=== PATIENT | male | born 1945 | race Caucasian/White ===

== ENCOUNTER 2017-08-12 00:11 | Day surgery (SDC) | payer MEDICARE ==
[~2017-08-12 00:11] MED LIST: ACEDIPPM; ACTOS; ALBU90I INH; AMLO10 PO; ASPI81CH PO; ASPI81EC PO; ATOR20 PO; DUTA.5 PO; ESOM20 PO; FENO145 PO; FENO160; FENO160 PO; FINA5 PO; FLUSAL1005 IH; FURO20 PO; GLIM4 PO; GLIMEPIRIDE; GLUC500 PO; GLUCHON; GLUCHON PO; IBUP100S; IBUP400 PO; INSULANI SC; INSULANPEN SQ; LEVSOD75 PO; METF500; METF500 PO; MONT10T PO; Metformin HCl1000 MG PO; OMEP20ER PO; OXYACE5T PO; POTA10T PO; PREG50 PO; ROSU10TA PO; TELM40/12. PO; TELM80/12.5 PO; TERA5 PO; ZOLP10 PO
== END 2017-08-12 15:42 | disposition home or self-care (01) ==
LOC: WOUND 00:11
PROC: 2W1QX6Z Compression of Right Lower Leg using Pressure Dressing (ICD-10-PCS; principal; 2017-08-12)
DX: E11.622 Type 2 diabetes mellitus with other skin ulcer (principal); L97.811 Non-pressure chronic ulcer of other part of right lower leg limited to breakdown of skin; S81.801A Unspecified open wound, right lower leg, initial encounter; I87.2 Venous insufficiency (chronic) (peripheral); I89.0 Lymphedema, not elsewhere classified; E11.621 Type 2 diabetes mellitus with foot ulcer; R60.0 Localized edema; E66.01 Morbid (severe) obesity due to excess calories
CPT/HCPCS: G0463

== ENCOUNTER 2017-08-16 11:30 | Day surgery (SDC) | payer MEDICARE ==
[2017-08-16] MEDS ORDERED: GABA300 PO (19:43)
[2017-08-16] MEDS ORDERED: LISI20 PO (19:43)
[2017-08-16] MEDS ORDERED: Silvadene20 GM TOP (19:44)
[2017-08-16] MEDS ORDERED: Micardis Hct 81 EAC1 PO (19:45)
[2017-08-16] MEDS ORDERED: ASCO500 PO (19:46)
[2017-08-16] MEDS ORDERED: Ferrous Sulfat325 M2 PO (19:46)
[2017-08-16] MEDS ORDERED: VITAMIN D31000 UNIT PO (19:46)
[2017-08-16] MEDS ORDERED: TUMS200 MG PO (19:47)
[2017-08-16] MEDS ORDERED: Glucosamine Ch1 EAC4 PO (19:48)
== END 2017-08-16 22:35 | disposition home or self-care (01) ==
LOC: WOUND 11:30
PROC: 2W1QX6Z Compression of Right Lower Leg using Pressure Dressing (ICD-10-PCS; principal; 2017-08-16)
DX: E11.622 Type 2 diabetes mellitus with other skin ulcer (principal); S81.801A Unspecified open wound, right lower leg, initial encounter; I87.2 Venous insufficiency (chronic) (peripheral); I89.0 Lymphedema, not elsewhere classified; E11.621 Type 2 diabetes mellitus with foot ulcer; R60.0 Localized edema

== ENCOUNTER 2017-08-19 10:37 | Day surgery (SDC) | payer MEDICARE ==
[~2017-08-19 10:37] MED LIST changes: +ASCO500 PO; +Ferrous Sulfat325 M2 PO; +GABA300 PO; +Glucosamine Ch1 EAC4 PO; +LISI20 PO; +Micardis Hct 81 EAC1 PO; +Silvadene20 GM TOP; +TUMS200 MG PO; +VITAMIN D31000 UNIT PO
== END 2017-08-19 23:04 | disposition home or self-care (01) ==
LOC: WOUND 10:37
DX: Z48.00 Encounter for change or removal of nonsurgical wound dressing (principal); E11.621 Type 2 diabetes mellitus with foot ulcer; S81.801A Unspecified open wound, right lower leg, initial encounter; I87.2 Venous insufficiency (chronic) (peripheral); I89.0 Lymphedema, not elsewhere classified; R60.0 Localized edema
CPT/HCPCS: G0463

== ENCOUNTER → 2017-12-01 | Outpatient (CLI) | payer MEDICARE ==
[2017-12-01 10:13] LABS: Source, Urine Clean Catch
[2017-12-01 13:08] LABS: Bilirubin, Urine Neg (Neg); Blood, Urine 1+ (Neg); Glucose Qualitative, Urine 4+ (Neg); Ketones, Urine Neg (Neg); Leukocyte Esterase, Urine Neg (Neg); Nitrite, Urine Neg (Neg); Protein, Urine 2+ (Neg); Urobilinogen, Urine NORM (Normal)
[2017-12-01 13:23] LABS: Appearance, Urine Clear (Clear); Color, Urine Yellow (P-Yellow)
[2017-12-01 13:24] LABS: Bacteria Rare /hpf; Hyaline Casts 0-2 /lpf (0-2); Mucus Light (0-Heavy); Red Blood Cells, Urine 0-2 /hpf (0-2); Squamous Epithelial Cells Rare /hpf (Few); White Blood Cells, Urine 0-2 /hpf (0-5)
== END | disposition home or self-care (01) ==
LOC: LAB 10:06 → LAB SHORT 10:06
PROVIDERS: Internal Medicine
DX: N18.2 Chronic kidney disease, stage 2 (mild) (principal)
CPT/HCPCS: 81001

== ENCOUNTER 2019-01-26 13:31 | Day surgery (SDC) | payer MEDICARE ==
[~2019-01-26] VITALS: Ht 182.9 cm; Wt 175.7 kg
== END 2019-01-26 15:00 | disposition home or self-care (01) ==
LOC: ORSCSDS 13:31
PROVIDERS: Anesthesiology
PROC: 3E0R33Z Introduction of Anti-inflammatory into Spinal Canal, Percutaneous Approach (ICD-10-PCS; principal; 2019-01-26 14:30)
DX: M51.16 Intervertebral disc disorders with radiculopathy, lumbar region (principal); E11.9 Type 2 diabetes mellitus without complications; E78.00 Pure hypercholesterolemia, unspecified; I10 Essential (primary) hypertension; J45.909 Unspecified asthma, uncomplicated; G89.29 Other chronic pain; G47.33 Obstructive sleep apnea (adult) (pediatric); E03.9 Hypothyroidism, unspecified; E66.01 Morbid (severe) obesity due to excess calories; Z68.43 Body mass index [BMI] 50.0-59.9, adult; Z79.82 Long term (current) use of aspirin; Z79.4 Long term (current) use of insulin; Z79.899 Other long term (current) drug therapy
CPT/HCPCS: J1040

== ENCOUNTER → 2020-01-25 | Outpatient (CLI) | payer MEDICARE | END | disposition home or self-care (01) | LOC: LAB 12:46 → LAB SHORT 12:46 | DX: I10 Essential (primary) hypertension (principal); D64.9 Anemia, unspecified | CPT/HCPCS: 82570; 84156 ==

== ENCOUNTER 2021-05-23 23:56 | Emergency (ER) | payer MEDICARE ==
[~2021-05-23] VITALS: Ht 182.9 cm; Wt 176.9 kg
== END 2021-05-24 03:23 | disposition home or self-care (01) ==
LOC: ER 23:56
DX: M16.12 Unilateral primary osteoarthritis, left hip (principal); I11.0 Hypertensive heart disease with heart failure; I50.9 Heart failure, unspecified; E11.9 Type 2 diabetes mellitus without complications; Z79.899 Other long term (current) drug therapy; Z79.82 Long term (current) use of aspirin; Z79.4 Long term (current) use of insulin; Z79.84 Long term (current) use of oral hypoglycemic drugs; Z88.5 Allergy status to narcotic agent
CPT/HCPCS: 73502; 96374; 99283-25; A9270; J1885

== ENCOUNTER 2022-03-24 11:47 | Emergency (ER) | payer MEDICARE ==
[~2022-03-24] VITALS: Ht 182.9 cm; Wt 176.9 kg
[2022-03-24 13:55] LABS: Influenza A, PCR NEGATIVE (NEGATIVE); Influenza B, PCR NEGATIVE (NEGATIVE); Resp Syncytial Virus, PCR NEGATIVE (NEGATIVE); SARS-Cov-2 (COVID-19) PCR, MMC NEGATIVE (NEGATIVE)
[2022-03-24] MEDS ORDERED: Acetaminophen650 M1 PO (19:11)
[2022-03-24] MEDS ORDERED: Ventolin5 MG/1 ML INH (19:12)
[2022-03-24] MEDS ORDERED: Cyclobenzaprine5 MG PO (19:14)
[2022-03-24] MEDS ORDERED: LOPE2C PO (19:15)
[2022-03-24] MEDS ORDERED: IRON GLYCINATE29 MG PO (19:16)
[2022-03-24] MEDS ORDERED: INSULANI SC (19:17)
[2022-03-24] MEDS ORDERED: NIFE30ER PO (19:18)
[2022-03-24] MEDS ORDERED: FAMO20 PO (19:18)
[2022-03-24] MEDS ORDERED: TORSE20 PO (19:19)
[2022-03-24] MEDS ORDERED: TRAZ50 PO (19:20)
[2022-03-24 19:21] LABS: BASOPHILS ABSOLUTE AUTO 0.02 K/mm3 (0.00-0.23); BASOPHILS PERCENT AUTO 0 % (0-2); EOSINOPHILS ABSOLUTE AUTO 0.26 K/mm3 (0.00-0.68); EOSINOPHILS PERCENT AUTO 3 % (0-6); Hematocrit 35.8 % (37.0-53.0); Hemoglobin 11.4 g/dL (13.5-17.5); IMMATURE GRAN ABSOLUTE AUTO 0.05 K/mm3 (0.00-0.10); IMMATURE GRAN PERCENT AUTO 1 % (0-1); LYMPHOCYTES ABSOLUTE AUTO 1.15 K/mm3 (0.84-5.20); LYMPHOCYTES PERCENT AUTO 14 % (21-46); MONOCYTES ABSOLUTE AUTO 0.77 K/mm3 (0.16-1.47); MONOCYTES PERCENT AUTO 10 % (4-13); Mean Corpuscular HGB 29.4 pg (26.0-34.0); Mean Corpuscular HGB Conc 31.8 g/dL (31.5-36.5); Mean Corpuscular Volume 92 fL (80-100); Mean Platelet Volume 9.4 fL (9.1-12.4); NEUTROPHILS ABSOLUTE AUTO 5.86 K/mm3 (1.96-9.15); NEUTROPHILS PERCENT AUTO 72 % (41-73); Platelet Count 239 K/mm3 (150-400); RDW Standard Deviation 47.5 fL (35.1-46.3); Red Blood Cell Count 3.88 M/mm3 (4.30-5.90); White Blood Cell Count 8.11 K/mm3 (4.00-11.30)
[2022-03-24 19:33] LABS: Albumin, Blood 3.3 g/dL (3.4-5.0); Albumin/Globulin Ratio 0.9 (0.8-1.8); Bilirubin, Total 0.3 mg/dL (0.1-1.0); Bun/Creatinine Ratio 23.2 (12.0-20.0); Calcium, Blood 10.2 mg/dL (8.5-10.1); Creatinine, Blood 1.38 mg/dL (0.60-1.20); Globulin, Blood 3.5 g/dL (2.2-4.0); Total Protein, Blood 6.8 g/dL (6.4-8.2)
[2022-03-24] MEDS ORDERED: ONDA4ODT MM (22:49)
== END 2022-03-24 23:03 | disposition home or self-care (01) ==
LOC: ER 11:47
PROVIDERS: Physician Assistant; Student in an Organized Health Care Education/Training Program
DX: I11.0 Hypertensive heart disease with heart failure (principal); I50.9 Heart failure, unspecified; B34.9 Viral infection, unspecified; E03.9 Hypothyroidism, unspecified; E11.9 Type 2 diabetes mellitus without complications; Z88.5 Allergy status to narcotic agent; Z79.899 Other long term (current) drug therapy; Z79.890 Hormone replacement therapy; Z79.82 Long term (current) use of aspirin; Z79.4 Long term (current) use of insulin; Z20.822 Contact with and (suspected) exposure to COVID-19
CPT/HCPCS: 0241U; 36415; 71046; 80053; 83690; 84484; 85025; A9270; J2405; J7120

== ENCOUNTER → 2022-07-28 | Outpatient (CLI) | payer MEDICARE ==
[~2022-07-28] MED LIST changes: +Acetaminophen650 M1 PO; +Cyclobenzaprine5 MG PO; +FAMO20 PO; +IRON GLYCINATE29 MG PO; +LOPE2C PO; +NIFE30ER PO; +ONDA4ODT MM; +TORSE20 PO; +TRAZ50 PO; +Ventolin5 MG/1 ML INH
== END ==
LOC: LAB 11:30 → LAB SHORT 11:30
DX: L08.9 Local infection of the skin and subcutaneous tissue, unspecified (principal)
CPT/HCPCS: 87070; 87205